=== PATIENT | female | born 1970 | race African-American/Black ===

== ENCOUNTER 2023-05-26 18:30 | Emergency (ER) | payer MEDICAID ==
[~2023-05-26] VITALS: Ht 172.7 cm; Wt 61.2 kg
[2023-05-26 18:51] VITALS: BP 132/74; TEMP 98.7
[2023-05-26 20:26] VITALS: O2SAT 100
== END 2023-05-26 20:28 | disposition left against medical advice (07) ==
LOC: ER 18:36
DX: H57.89 Other specified disorders of eye and adnexa (principal); Z53.21 Procedure and treatment not carried out due to patient leaving prior to being seen by health care provider

== ENCOUNTER 2024-03-20 10:35 | Emergency (ER) | payer MEDICAID ==
[~2024-03-20] VITALS: Ht 175.3 cm; Wt 59.0 kg
[2024-03-20 10:41] VITALS: TEMP 98.2
[2024-03-20] MEDS: TETRAcaine 5 ML BOTTLE EACHEYE ONE (11:30)
[2024-03-20] MEDS: FLUORESCEIN SODIUM OPHTH 1 EA STRIP OP ONE (11:30)
[2024-03-20] MEDS ORDERED: FLUORESCEIN SODIUM OPHTH 1 EA STRIP ONE (11:31)
[2024-03-20] MEDS ORDERED: TETRAcaine 5 ML BOTTLE ONE (11:31)
[2024-03-20 11:42] LABS: BASOPHILS % (AUTO) 0.6 % (0.0-2.0); EOSINOPHILS % (AUTO) 1.3 % (0.0-6.0); HEMATOCRIT 45 % (33-45); HEMOGLOBIN 14.4 g/dL (11.5-14.8); LYMPHOCYTES # (AUTO) 1.6 K/uL (0.8-4.8); LYMPHOCYTES % (AUTO) 48.9 % (20.0-44.0); MEAN CORPUSCULAR HEMOGLOBIN 28 PG (26.0-33.0); MEAN CORPUSCULAR HGB CONC 32 g/dl (31.0-36.0); MEAN CORPUSCULAR VOLUME 87 fL (82-100); MONOCYTES # (AUTO) 0.3 K/uL (0.1-1.30); MONOCYTES % (AUTO) 8.2 % (2.0-12.0); NEUTROPHILS # (AUTO) 1.3 K/uL (1.8-8.9); PLATELET COUNT (AUTO) 194 K/uL (150-450); RED BLOOD CELL COUNT(AUTO) 5.17 MIL/uL (4.0-5.2); RED CELL DISTRIBUTION WIDTH 14.5 % (11.5-15.0); WHITE BLOOD COUNT (AUTO) 3.3 K/uL (4.3-11.0)
[2024-03-20 11:50] LABS: CALCIUM, SERUM 9.6 mg/dL (8.5-10.1); POTASSIUM 3.9 mmol/L (3.5-5.1)
[2024-03-20 13:52] VITALS: BP 110/73; O2SAT 99
== END 2024-03-20 13:05 | disposition home or self-care (01) ==
LOC: ER 10:40
DX: H53.8 Other visual disturbances (principal)
CPT/HCPCS: 36415; 80048-TC; 85025-TC